=== PATIENT | male | born 1965 | race Caucasian/White ===

== ENCOUNTER 2024-09-03 14:04 | Outpatient (AMB) | payer OTHER, SELFPAY ==
--- OUTSIDE RECORDS SUMMARY | 2024-03-06 05:45 | XMS_ITS ---
Author Organization [facility] Address [address] [address] Care Team Providers Care Spotlight Operator Name Role Phone Prosper Francis Primary Care Provider UnavailYVETTE Rhoades [phone] Allergies Allergen (clinical drug ingredient) Drug/Non Drug Allergy documented on EMR Reaction Allergy Type Onset Date Status ciprofloxacin Cipro rash Drug Allergy Act trang REASON FOR VISIT PCP Referral for B/L foot pain Medications Medication SIG (Take, Route, Frequency, Duration) Notes Start Date End Date Status Allopurinol 300 MG 1 tablet Orally Once a day Active Famotidine 40 MG 1 tablet Orally Once a day Active Atorvastatin Calcium 10 MG 1 tablet Oral ly Once a day Active Lisinopril 5 MG 2 tablets Orally Onc e a day Active Vitamin D3 25 MCG (1000 UT) 1 tablet Ora lly Once a day Active Encounters Encounter Location Date Provider Diagnosis [facility] [address] [address] 03/06/2024 YVETTE SNYDER Plan Of Treatment No Information Progress Notes * Олег GARCIADOB:1965 (58 yo M)Acc No.[id number]:03/06/2024 Consult note Patient: Олег GLEZ Provider: Venessa Snyder DPM :1965 A ge:58 Y S ex:Male Date:03/06/2024 Phone: Address:[address] [place] [id number] Pcp:Prosper Francis Subjective: * Chief Complaints: * 1 . PCP Referral for B/L foot pain. * Medical History: G ERD (gastroesophageal reflux disease), Gout, Hearing impairment, HLD (hyperlipidemia), Hypertension, Neuropathy, obesity (BMI 30.0-39.9), JAY JAY (obstructive sleep apnea), Prostate cancer. * Surgical History: K nee surgery, left . * Family History: F ather: DM type II. M other: Aneurysm, heart disease. * Medications: T aking Vitamin D3 25 MCG (1000 UT) Capsule 1 tablet Orally Once a day , Taking Lisinopril 5 MG Tablet 2 tablets Orally Once a day , Taking Famotidine 40 MG Tablet 1 tablet Orally Once a day , Taking Atorvastatin Calcium 10 MG Tablet 1 tablet Orally Once a day , Taking Allopurinol 300 MG Tablet 1 tablet Orally Once a day * Allergies: C ipro: rash - Allergy. Objective: * Vitals: Therapeutic Interventions: Assessment: Plan: * Treatment: * Billing Information: * Visit Code: * Procedure Codes: * Electronic signature of KERRIE SNYDER D.P.M on 09/03/2024 at 02:08 PM EDT Sign off status: Pending * Provider: Venessa Snyder DPM Date: 03/06/2024 Generated for Svitlana Hammond/Ivanna on: 09/03/2024 02:08 PM EDT
--- NOTE | 2024-09-03 14:09 | A.OFFVIS_ITS ---
Vital Signs 09/03/24 14:10 Height 6 ft Weight 220 lb BMI 29.8 Intake Visit Reasons: MRI review Medication List - Last Reconciled 09/03/24 by Mars Reyes MD allopurinol 300 mg PO DAILY apixaban (Eliquis) 5 mg PO BID atorvastatin 10 mg PO DAILY famotidine 40 mg PO DAILY lisinopril 5 mg PO DAILY topiramate 100 mg PO BEDTIME HPI Comments Details: 58 years old right-handed man with obesity, JAY JAY on CPAP, hypertension, hyperlipidemia, and AION affecting his right eye, and cluster headaches (severe throbbing pain behind the right eye). He could not take triptans and verapamil due to cardiac issues. Prednisone has not terminated the attack. Oxygen was prescribed for PRN treatment, and topiramate was added. Pain was happening more at night, lasting for a few minutes to 3 hours, only on right side, and severe. Oxygen was helping but after 15-20 min of treatment. Review of Systems Const Details: Constitutional:?No fever, chills, fatigue, weight loss, or night sweats. HEENT:?No headache, vision changes, hearing loss, nasal congestion, sore throat. Neurological:?No dizziness, syncope, seizures, numbness, tingling, weakness, tremors, memory loss. Psychiatric:?No anxiety, depression, mood swings, sleep disturbance, or hallucinations. Endocrine:?No heat/cold intolerance, polydipsia, polyuria, or hair/skin changes. Hematologic/Lymphatic:?No easy bruising, bleeding, or lymphadenopathy. Integumentary (Skin):?No rash, lesions, itching, or color changes. ? Physical Exam Neuro Other: Mental Status: Alert and oriented to person, place, and time. Normal attention. Normal spontaneous speech, fluency, and comprehension. No obvious issues with mood and memory. Affect is appropriate. Cranial Nerves: CN II: Visual patel full to confrontation, visual acuity intact. CN III, IV, : Pupils equal, round, reactive to light and accommodation. Extraocular movements are normal. CN V: Facial sensation is normal. CN VII: Facial movements symmetrical. CN VIII: Hearing intact to bedside conversation is normal. CN IX, X: Palate elevates symmetrically. CN XI: Shoulder shrug and head turn symmetrical. CN XII: Tongue midline without atrophy or fasciculations. Motor: Bulk and tone normal in all extremities. No significant muscle weakness in arms and legs. No drift. Reflexes: Deep tendon reflexes 2+ and symmetric. Plantar response down-going bilaterally. Coordination: [id number] and [id number] testing normal. No dysmetria. Gait and Station: No obvious gait abnormality. No ataxia or instability. Sensory: Intact to light touch, pinprick, and vibration. Romberg is negative. Extrapyramidal: Full facial expressions and blinking. No rigidity. Movements are appropriate with no tremor or abnormality. Speech: Normal; no dysarthria or tremor. Assessment & Plan Assessment & Plan (1) Cluster headache syndrome: Comment: Meds tried: Verapamil (he cannot take due to cardiac issues), Topiramate, prednisone, triptans (cannot take due to cardiac issues) MRI brain [facility]WO at [facility] in September 2024: Mild atrophy Code(s): G44.009 - Cluster headache syndrome, unspecified, not intractable Category: Medical Qualifiers: Headache chronicity pattern: episodic headache Intractability: intractable Qualified Code(s): G44.011 - Episodic cluster headache, intractable (2) JAY JAY on CPAP: Code(s): G47.33 - Obstructive sleep apnea (adult) (pediatric) Category: Medical Plan Intractable cluster headaches with no obvious brain lesion noted that could be treated. At this stage, it is a matter pain management. As far as abortive medicines are concerned, most effective medicines are Triptan, which he can not take due to cardiac issues. For controlling or preventive medicines, he can not take the most effective verapamil again because of cardiac issues. Topiramate was started as preventive medicine and maybe there was some relief but I would try it for full 4 weeks with little bit higher dose to see if that would work. If this would not work, I would start him on lithium. As far as abortive medicine is concerned, he is having success or somewhat success with oxygen and sometime he was just going to emergency room to get treatment with oxygen. I do not think that is a practical solution. He should have cell under of oxygen at home for treatment of this type of headaches which are severe and intractable at this time. Medications: New topiramate 100 mg PO BID 180 tabs 0RF 90 days Coding Level of Care Code Est Pt Level 4 (39119) Diagnoses Intractable episodic cluster headache G44.011 Headache chronicity pattern: episodic headache Intractability: intractable JAY JAY on CPAP G47.33
--- OUTSIDE RECORDS SUMMARY | 2024-09-03 14:09 | XMS_ITS | Patient Health Record ---
Author Organization [facility] Address [address] [facility] [address] [place] [address] Care Team Providers Care Cadd Technician Name Role Phone Jess Hernandez Unavailable [phone] Allergies No Known Allergies Reason For Referral No Information Medications Medication SIG (Take, Route, Frequency, Duration) Notes Start Date End Date Status Atorvastatin Calcium 10 MG TAKE 1 TABLET BY MOUTH EVERY DAY Oral for 90 Active Lisinopril 5 MG TAKE 1 TABLET BY DEWEY TH EVERY DAY Oral for 90 Active methylPREDNISolone 4 MG as directed Orally 023 Active Allopurinol 300 MG 1 tablet Orally Once a day Active Aspirin 325 MG 1 tablet Orally Once a day Active Famotidine 40 MG Oral for 90 A ctive Plan Of Treatment No Information Insurance Providers Payer Name Payer Address Payer Phone Subscriber Number Group Number Insured Name Patient Relationship to Insured Coverage Start Date Coverage End Date [employer] RE/COM LARON Fortino [address] [place] [address] [id number] Deepthi Nino Spouse - patient is the spouse of the insured Medical (General) History Medical History History ICD Code hypertension acid reflux high cholesterol gout
--- OUTSIDE RECORDS SUMMARY | 2024-09-03 14:09 | XMS_ITS | Patient Health Record ---
Author Organization [facility] Susanna re[facility] Address [address] [place] [address] Care Team Providers Care Commercial Loan Coordinator Name Role Phone Eligio Araujo MD Primary Care Provider Jean Mak Unavailable [phone] Reason For Referral No Information Medications Medication SIG (Take, Route, Frequency, Duration) Notes Start Date End Date Status Ciclopirox Olamine 0.77% external Apply to effected areas twice a day; Duration: 30 days 10/13/2015 Active Atorvastatin Calcium Active Ranitidine HCl 300 MG 1 capsule at bedti me Orally Once a day Active Allopurinol 300 MG 1 tablet Orally Once a day Active Lisinopril 10 MG 1 tablet Orally Once a day Active Social History Tobacco use other than smoking: Question Answer Notes Are you an other tobacco user? No Problems Problem Type SNOMED Code ICD Code Onset Dates Problem Status W/U Status Risk Notes Problem Tinea unguium (013654073) Tinea unguium (B35.1) Active confirmed Problem Plantar wart (B07.0) Active confirmed Plan Of Treatment Pending Test Test Name Order Date [id number] NAIL, 1-10/13/2015 [id number] Destruction, -10/13/2015 Insurance Providers Payer Name Payer Address Payer Phone Subscriber Number Group Number Insured Name Patient Relationship to Insured Coverage Start Date Coverage End Date [facility] [address] [place] [address] [phone] [id number] Deepthi Nino Spouse - patient is the spouse of the insured Medical (General) History Medical History History ICD Code Chicken pox Gout High blood pressure Measles Reflux Cholesterol Surgical History Surgery Date(Month/Year) Hernias 11/2012
[2024-09-03 14:10] VITALS: BMI 29.8
== END 2024-09-03 14:40 | disposition home or self-care (01) ==
LOC: HO.HSM 14:04
PROVIDERS: PCP Physician Assistant Medical; Visit Provider Psychiatry & Neurology Neurology
DX: G44.011 Episodic cluster headache, intractable (principal); G47.33 Obstructive sleep apnea (adult) (pediatric)
CPT/HCPCS: 99214

== ENCOUNTER 2024-10-19 13:48 | Outpatient (AMB) | payer OTHER, SELFPAY ==
--- NOTE | 2024-10-19 13:59 | A.OFFVIS_ITS ---
Intake Visit Reasons: 1m Cluster REY Allergies No Known Allergies Allergy (Verified 10/12/24 10:04) Medication List - Last Reconciled 10/19/24 by Mars Reyes MD allopurinol 300 mg PO DAILY apixaban (Eliquis) 5 mg PO BID atorvastatin 10 mg PO DAILY famotidine 40 mg PO DAILY lisinopril 5 mg PO DAILY topiramate 100 mg PO BID 90 days HPI Comments Details: 58 years old right-handed man with obesity, JAY JAY on CPAP, hypertension, hyperlipidemia, and AION affecting his right eye, and cluster headaches (severe throbbing pain behind the right eye). He is presenting with headaches. He previously experienced a continuous headache episode lasting 10 days, which eventually diminished in frequency before ceasing about three to four weeks prior to this visit. To address these headaches, his medication was modified, ceasing the use of prednisone five to six weeks ago and initiating Topiramate treatment, which he takes twice daily. Currently, he does not report any headaches in the past three weeks. He has a medical history of gout, hyperlipidemia, GERD, and hypertension, for which he takes Allopurinol, Atorvastatin, Famotidine, and Lisinopril daily. Additionally, he uses Apixaban and Vitamin D3. The patient reports his sleep is not excellent but does not elaborate further on sleep disturbances during this visit. [facility] Medical History (Updated 10/12/24 @ 10:04 by Endy Huertas [facility]) JAY JAY on CPAP Ischemic optic neuropathy, right eye Gout HTN (hypertension) with goal to be determined GERD (gastroesophageal reflux disease) Cluster headache syndrome Review of Systems Const Details: - Neurological: Reports recurrence of headaches before they ceased three to four weeks ago. Denies current headaches. - Gastrointestinal: Denies new symptoms. Reports use of Famotidine. - Cardiovascular: Denies new symptoms. Reports use of Lisinopril and Atorvastatin. - Musculoskeletal: Denies acute joint swelling. Reports use of Allopurinol for gout. - Hematologic: Reports use of Apixaban. - General: Reports poor sleep quality. Assessment & Plan Assessment & Plan (1) Cluster headache syndrome: Comment: Meds tried: Verapamil (he cannot take due to cardiac issues), Topiramate, prednisone, triptans (cannot take due to cardiac issues) MRI brain WWO at [facility] in September 2024: Mild atrophy Code(s): G44.009 - Cluster headache syndrome, unspecified, not intractable Category: Medical Qualifiers: Headache chronicity pattern: episodic headache Intractability: intractable Qualified Code(s): G44.011 - Episodic cluster headache, intractable Plan Impression: Cluster headache syndrome Rec: Topiramate 100mg bid Coding Level of Care Code Est Pt Level 4 (01801) Diagnoses Intractable episodic cluster headache G44.011 Headache chronicity pattern: episodic headache Intractability: intractable
--- OUTSIDE RECORDS SUMMARY | 2024-10-19 14:38 | XMS_ITS | Patient Health Record ---
Author Organization [employer] [facility] Address [address] [facility] [address] [place] [address] Care Team Providers Care Baggage Security Checker Name Role Phone Jess Hernandez Unavailable [phone] Allergies No Known Allergies Reason For Referral No Information Medications Medication SIG (Take, Route, Frequency, Duration) Notes Start Date End Date Status Atorvastatin Calcium 10 MG TAKE 1 TABLET BY MOUTH EVERY DAY Oral; Duration: 90 Active Lisinopril 5 MG TAKE 1 TABLET BY DEWEY TH EVERY DAY Oral; Duration: 90 Active methylPREDNISolone 4 MG as directed Orally 023 Active Allopurinol 300 MG 1 tablet Orally Once a day Active Aspirin 325 MG 1 tablet Orally Once a day Active Famotidine 40 MG Oral; Duration: 90 Active Plan Of Treatment No Information Insurance Providers Payer Name Payer Address Payer Phone Subscriber Number Group Number Insured Name Patient Relationship to Insured Coverage Start Date Coverage End Date [employer] RE/COM LARON Freitas [address] [place] [address] [id number] Deepthi Nino Spouse - patient is the spouse of the insured Medical (General) History Medical History History ICD Code hypertension acid reflux high cholesterol gout
--- OUTSIDE RECORDS SUMMARY | 2024-10-19 14:38 | XMS_ITS | Encounter Summary ---
Author Organization [facility] Address [address] [place] [address] Phone Care Team Providers Care Location Director Name Role Phone Melvi Romero Primary Care Provider + Reason for Referral * MRI/CAT Scan - Closed Specialty Diagnoses / Procedures Referred By Paco t Referred To Contact Radiology Diagnoses Malignant neoplasm of prostate Procedures NM PET CT Prostate Cancer Imaging NM PET CT Skull Base to Mid Thighs Ren Marrqouin MD Phone: tel: fax: mailto: Referral ID Status Reason Start Date Expiration Date Visits Re quested Visits Authorized [id number] Closed 11/15/2021 11/15/2022 1 1 Encounter Details Date Type Department Care Team (Latest Contact Info) Description 11/15/2021 Transcribe Orders Virtual Department [address] [place] [address] Ren Marroquin MD [address] [place] [address], [address] [address] [email or web address] Malignant neoplasm of prostate (Primary Dx) Social History Tobacco Use Types Packs/Day Years Used Date Smoking Tobacco: Former Cigarettes 0.5 7 1 983 - 1990 Smokeless Tobacco: Never Sex and Gender Information Value Date Recorded Sex Assigned at Male 12/12/2023 7:40 PM EDT Legal Sex Male 2:50 PM EDT Gender Identity Male 12/12/2023 7:40 PM EDT Sexual Orientation Not on file documented as of this encounter Plan of Treatment Upcoming Encounters Date Type Department Care Team (Late st Contact Info) Description 12/03/2024 2:30 PM EDT Telemedicine - audio only [facility] Rad Onc [address] [place] [address] Sohail Torres MD [address] [place] [address] [email or web address] 07/27/2025 11:00 AM EDT Office Visit [facility] [address] [facility] [address] [place] [address] Eh Lindquist MD [address] [facility], [address] [place] [address] [email or web address] documented as of this encounter Results * NM PET CT Prostate Cancer Imaging (11/16/2021 2:48 PM EDT) Anatomical Region Laterality Modality Pelvis Positron Emissio n Tomography (PET) Narrative 11/16/2021 12:57 PM EDT [facility] Ren Marroquin MD IMG NM PET Final Result documented in this encounter Visit Diagnoses Diagnosis Malignant neoplasm of prostate- Primary Malignant neoplasm of prostate documented in this encounter Care Teams Location Director Relationship Specialty Start Date End Date Melvi Romero PA [address] [facility] [address] [facility] [address] [place] [address] PCP - General 11/08/21 documented as of this encounter Additional Source Comments The information contained in this document represents components of the legal health record. It is not the complete legal health record.[facility]
--- OUTSIDE RECORDS SUMMARY | 2024-10-19 14:39 | XMS_ITS | Patient Health Record ---
Author Organization [facility] Address [address] [address] Care Team Providers Care Clothespin Drier Operator Name Role Phone Penny Prosper Primary Care Provider Unavailab YVETTE Waters [phone] Allergies Allergen (clinical drug ingredient) Drug/Non Drug Allergy documented on EMR Reaction Allergy Type Onset Date Status ciprofloxacin Cipro rash Drug Allergy Act trang Reason For Referral No Information Medications Medication SIG (Take, Route, Frequency, Duration) Notes Start Date End Date Status Vitamin D3 25 MCG (1000 UT) 1 tablet Ora lly Once a day Active Lisinopril 5 MG 1 tablet Orally Once a day Active Cephalexin 500 MG 1 tablet Orally ever y 6 hrs Active Sulfamethoxazole Act trang Famotidine 40 MG 1 tablet Orally Once a day Active Atorvastatin Calcium 10 MG 1 tablet Oral ly Once a day Active Allopurinol 300 MG 1 tablet Orally Once a day Active Vital Signs Heart Rate 60 /min 06/26/2024 Temperature 96.1 degrees Fahrenheit 06/26/2024 Respiratory Rate 16 /min 06/26/2024 Height 5ft 10in in 06/26/2024 Weight 238.8 lbs 06/26/2024 BMI 34.26 kg/m2 06/26/2024 Encounters Encounter Location Date Provider Diagnosis [facility] [address] [address] 06/26/2024 YVETTE PATTON Capsulitis of metatarsophalangeal (MTP) joint of left foot M77.52 ; Capsulitis of metatarsophalangeal (MTP) joint of right foot M77.51 ; Metatarsalgia, right foot M77.41 ; Metatarsalgia, left foot M77.42 ; Pain in left foot M79.672 and Pain in right foot M79.671 Assessments Encounter Date Diagnosis (ICD Code) Assessment Notes Treatment Notes Treatment Clinical Notes Section Notes 06/26/2024 Capsulitis of metatarsophalangeal (MTP) joint of right foot (ICD-10 - M77.51) 06/26/2024 Capsulitis of metatarsophalangeal (MTP) joint of left foot (ICD-10 - M77.52) This is an outpatient visit for evaluation and management of a new patient, which required appropriate review of pertinent medical history, review of any previous imaging, review of all previous records, and examination and decision-making. Time was 45 minutes spent in review of all these facets including face to face discussion with the patient regarding my findings and in discussion of a current and future treatment plan. I reviewed the x-rays taken at [facility] with the patient. 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 There is no arthritic changes seen in the lesser metatarsophalangeal joints. His x-rays were also taken non weight-bearing, so it is difficult to evaluate the alignment of his intermetatarsal spaces. No fractures observed. We discussed that his symptoms are more musculoskeletal versus neurological. I believe he has inflammation of the joints, caused by lack of use and poor shoe gear. He has already started treatment with a desulphurizer operator in [place]. We discussed that he would not be eligible for more injections in the left foot until next year. He could have one more injection in the right foot. We discussed the other recommendations besides reducing the inflammation in the joints. He states the injections have helped. I explained to the patient that metatarsalgia is caused by an inflammation of the capsules surrounding the joints of the toes. I explained that they need an insert in their shoes to help offload the metatarsal heads when they walk to take the pressure off the capsules. I wrote a prescription for a full length inserts with metatarsal pads bilaterally. List of DME suppliers and orthotic break in instructions dispensed to the patient. I reviewed stretching exercises with the patient to help keep their joints mobilized, handout dispensed in the office today. I recommended heat to the area at night. We discussed he should get his orthotics and start the stretching exercises. Once he has received his orthotics, he can slowly start to increase his walking again, by starting with a 1/2 mile and increasing each week. He is in agreement with this plan. Patient to follow up as needed. 06/26/2024 Metatarsalgia, right foot (ICD-10 - M77.41) 06/26/2024 Metatarsalgia, left foot (ICD-10 - M77.42) 06/26/2024 Pain in left foot (ICD-10 - M79.672) 06/26/2024 Pain in right foot (ICD-10 - M79.671) Plan Of Treatment No Information Insurance Providers Payer Name Payer Address Payer Phone Subscriber Number Group Number Insured Name Patient Relationship to Insured Coverage Start Date Coverage End Date [employer] [address] [address] [place] [address] [id number] Олег Duron lt Self - patient is the insured Medical (General) History Medical History History ICD Code GERD (gastroesophageal reflux disease) Gout Hearing impairment HLD (hyperlipidemia) hypertension neuropathy obesity (BMI 30.0-39.9) JAY JAY (obstructive sleep apnea) prostate cancer + COVID 2021 COVID vaccinated X 4 (Pfizer) Surgical History Surgery Date(Month/Year) Knee surgery, left prostatectomy bilateral inguinal hernia repair Hospitalization History Reason Date(Month/Year) bilateral inguinal hernia repair prostatectomy
--- OUTSIDE RECORDS SUMMARY | 2024-10-19 14:39 | XMS_ITS | Clinical Summary ---
Author Organization [address] [place] [address] Address [address] [place] [address] Phone Care Team Providers Care Special Warfare Combatant Crewman Name Role Phone Anant Andrade MD Primary Care Provider [phone] Allergies Active Allergy Reactions Criticality Noted Date Comments Ciprofloxacin Rash 10/01/2020 Medications cholecalciferol (VITAMIN D-3) 25 mcg (1,000 unit) tablet Take 1 tablet (1,000 Units total) by mouth 1 (one) time each day. 09/17/2023 Active lisinopriL (PRINIVIL,ZESTRI L) 5 mg tablet Take 1 tablet (5 mg total) by mouth 1 (one) time each day. 09/12/2023 Active atorvastatin (LIPITOR) 10 mg tablet Take 1 tablet (10 mg total) by mouth 1 (one) time each day. 07/02/2023 Active celecoxib (CeleBREX) 200 mg capsule 10/22/2022 Active aspirin 325 mg EC tablet Take 1 tablet (325 mg total) by mouth 1 (one) time each day. 04/17/2019 Active famotidine (PEPCID) 40 mg tablet TAKE 1 TABLET BY MOUTH EVERY DAY 90 tablet 1 06/08/2024 Active cephalexin (KEFTAB) 500 mg tablet 500 mg orally every 12 hours 06/24/2024 Active sulfamethoxazole -trimethoprim (BACTRIM DS,SEPTRA DS) 800-160 mg per tablet Take 1 tablet by mouth every 12 (twelve) hours. 06/24/2024 Active cholecalciferol (VITAMIN D-3) 25 mcg (1,000 unit) tablet Take 1 tablet (1,000 Units total) by mouth daily. 09/17/2023 Active apixaban (ELIQUIS) 5 mg tablet Take 1 tablet (5 mg total) by mouth 2 (two) times a day. Active allopurinoL (ZYLOPRIM) 300 mg tablet TAKE 1 TABLET BY MOUTH EVERY DAY 90 tablet 1 09/07/2024 Active Active Problems Problem Noted Date Diagnosed Date Persistent atrial fibrillation (CMS/HCC V24, CMS /HCC V28) 08/06/2024 Obesity (BMI 30.0-34.9) 01/17/2024 BPH (benign prostatic hyperplasia) 08/17/2021 Migraine 04/17/2019 GERD (gastroesophageal reflux disease) 8 Gout 10/10/2017 Hearing loss 10/10/2017 Hyperlipidemia 10/10/2017 Hypertension 10/10/2017 Ischemic optic neuropathy 10/10/2017 Obstructive sleep apnea 10/10/2017 Peyronie's disease 10/10/2017 ED (erectile dysfunction) 09/30/2015 Internal hemorrhoids 06/21/2015 Overview (01/17/2024): And external Encounters Date Type Department Care Team Description 08/06/2024 8:15 AM EDT Office Visit Pulmonolgy - [address] [place] [address] Jono Markham MD Obstructive sleep apnea (Primary Dx); Obesity (BMI 30.0-34.9); Persistent atrial fibrillation (CMS/HCC V24, CMS/HCC V28); Gastroesophageal reflux disease without esophagitis from Last 3 Months Immunizations Name Administration Dates Next Due Influenza Quadravalent, MDCK , 0.5ml, preservative free (Flucelvax) 6mo and older 01/19/2019 Tetanus Toxoid, Unspecified 08/02/2008 Surgical History Surgery Date Site/Laterality Comments HERNIA REPAIR PROCEDURE: HISTORICAL HERNIA REPAIR/ING OTHER SURGICAL HISTORY 11/22/2021 PROCEDURE: AR PROSTATECTOMY PERINEAL RADICAL; COMMENT: Dr[facility] Lindquist at [facility] due to prostate cancer KNEE SURGERY 07/15/2023 Left PROCEDURE: HISTORICAL KNEE SURGERY; COMMENT: Left knee arthroscopy Dr. Castro Medical History Medical History Date Comments ED (erectile dysfunction) 09/30/2015 DX:ED (erectile dysfunction) GERD (gastroesophageal reflux disease) 8 DX:GERD (gastroesophageal reflux disease) Gout 10/10/2017 DX:Gout Hearing loss 10/10/2017 DX:Hearing loss Hyperlipidemia 10/10/2017 DX:Hyperlipidemi a Hypertension 10/10/2017 DX:Hypertension Internal hemorrhoids 06/21/2015 DX:Internal hemorrhoids; COMMENT: And external Ischemic optic neuropathy 10/10/2017 DX:Isc hemic optic neuropathy Obstructive sleep apnea 10/10/2017 DX:Obstr uctive sleep apnea Peyronie's disease 10/10/2017 DX:Peyronie's disease Obesity (BMI 30.0-34.9) DX:Obesi ty (BMI 30.0-34.9) BPH (benign prostatic hyperplasia) DX:BPH (benign prostatic hyperplasia) Family History Medical History Relation Name Comments Diabetes Brother Diabetes Father Diabetes Mother Relation Name Status Comments Brother Alive Father Alive Mother Social History Tobacco Use Types Packs/Day Years Used Date Smoking Tobacco: Never Smokeless Tobacco: Never Alcohol Use Standard Drinks/Week Comments Yes 0 (1 standard drink = 0.6 oz pur e alcohol) Sex and Gender Information Value Date Recorded Sex Assigned at Not on file Legal Sex Male 10:07 AM EST Gender Identity Not on file Sexual Orientation Not on file Obstetrics History Last Filed Vital Signs Vital Sign Reading Time Taken Comments Blood Pressure 130/74 08/06/2024 8:22 AM EDT Pulse 62 08/06/2024 8:22 AM EDT Temperature 36.7 C (98 F) 08/06/2024 8:22 AM EDT Respiratory Rate 20 08/06/2024 8:22 AM EDT Oxygen Saturation 99% 08/06/2024 8:22 AM EDT Inhaled Oxygen Concentration - - Weight 103 kg (227 lb) 08/06/2024 8:22 AM EDT Height 175.3 cm (5' 9 ) 08/06/2024 8:22 AM EDT Body Mass Index 33.52 08/06/2024 8:22 AM EDT Plan of Treatment Upcoming Encounters Date Type Department Care Team ([facility] st Contact Info) Description 08/09/2025 8:00 AM EDT Office Visit Pulmonol - [place] [address] [phone] Jono Markham MD [address] [facility] [address] [place] [address] Health Maintenance Due Date Last Done Comments DTaP,Tdap,and Td Vaccines (1 - Tdap) 11/29/1983 Hepatitis B Vaccines (1 of 3 - 19+ 3-dose series) 11/29/1983 Pneumococcal Vaccine: 50+ Years (1 of 1 - PCV) 2014 HIV Screening 01/30/2022 Hepatitis C Screening 01/30/2022 Social Influencers of Health Screening 01/30/2022 Zoster Vaccines (2 of 2) 01/10/2024 11/15/2023 Depression Screening 03/04/2024 Hypertension/CHF/CAD Annual BMP Blood Test 07/17/2024 07/18/2023, 07/18/2023 Influenza Vaccine (#1) 2024 , 12/20/2022, 03/02/2022, Additional history exists Colorectal Cancer Screening: Colonoscopy 06/16/2025 06/17/2015 Cholesterol Screening (Lipid Panel) 07/17/2028 07/18/2023, 07/18/2023 RSV Immunization Adult Patients (1 - 1-dose 75+ series) 11/29/2039 COVID-19 Vaccine Completed 11/15/2023, , 03/02/2022, Additional history exists HIB Vaccines Aged Out No longer eligi ble based on patient's age to complete this topic HPV Vaccines Aged Out No longer eligi ble based on patient's age to complete this topic Hepatitis A Vaccines Aged Out No long er eligible based on patient's age to complete this topic IPV Vaccines Aged Out No longer eligi ble based on patient's age to complete this topic MMR Vaccines Aged Out No longer eligi ble based on patient's age to complete this topic Meningococcal ACWY Vaccine Aged Out N o longer eligible based on patient's age to complete this topic Meningococcal B Vaccine Aged Out No l onger eligible based on patient's age to complete this topic RSV Immunization Patients Under 20 months Aged Out No longer eligible based on patient's age to complete this topic Varicella Vaccines Aged Out No longer eligible based on patient's age to complete this topic Procedures Procedure Name Priority Date/Time Associated Diagnosis Comments HM ANNUAL BMP BLOOD TEST Routine 07/18/2023 LIPID PANEL Routine 07/18/2023 COLONOSCOPY Routine 06/17/2015 from Last 3 Months or Most Recently Relevant to Health Maintenance Results * Annual BMP Blood Test (07/18/2023) Pathologist [facility] Annual BMP Blood Test abstracted [facility] Provider HEALTH MAINTENANCE Final Result * (ABNORMAL) Lipid panel (07/18/2023) [facility] LDL/HDL Ratio 4 0 - 4 Triglycerides 195(A) 0 - 150 mg/dL Cholesterol 170 0 - 200 mg/dL HDL 40 >=40 mg/dL LDL Cholesterol 91 0 - 100 mg/dL Blood Venous blood specimen / Unknown [facility] Provider LAB BLOOD ORDERABLES Sayra l Result * Colonoscopy (06/17/2015) [facility] Colonoscopy no interpretation , abstracted Anatomical Region Laterality Modality Other [facility] Provider HEALTH MAINTENANCE Final Result from Last 3 Months or Most Recently Relevant to Health Maintenance Insurance [employer] Care Teams Special Warfare Combatant Crewman Relationship Specialty Start Date End Date Anant Andrade MD [address] [place], [place] [address] [address] PCP - General Internal Medicine 02/07/24
--- OUTSIDE RECORDS SUMMARY | 2024-10-19 14:39 | XMS_ITS | Patient Health Record ---
Author Organization [facility] [place] Address [address] [place] [address] Care Team Providers Care Piano Assembler Name Role Phone Eligio Araujo MD Primary Care Provider Jean Mak Unavailable [phone] Reason For Referral No Information Medications Medication [...] W/U Status Risk Notes Problem Tinea unguium (B35.1) Active confirmed Problem Plantar wart (47147091) Plantar wart (B07.0) Active confirmed Plan Of Treatment Pending Test Test Name Order Date [id number] NAIL, 1-10/13/2015 [id number] Destruction, -10/13/2015 Insurance Providers Payer Name Payer Address Payer Phone Subscriber Number Group Number Insured Name Patient Relationship to Insured Coverage Start Date Coverage End Date [facility] [address] [place] [address] [phone] [id number] Deepthi Nino Spouse - patient is the spouse of the insured Medical (General) History Medical History History ICD Code Chicken pox Gout High blood pressure Measles Reflux Cholesterol Surgical History Surgery Date(Month/Year) Hernias 11/2012
== END 2024-10-19 14:14 | disposition home or self-care (01) ==
LOC: HO.HSM 13:49
PROVIDERS: PCP Physician Assistant Medical; Visit Provider Psychiatry & Neurology Neurology
DX: G44.011 Episodic cluster headache, intractable (principal)
CPT/HCPCS: 99214